=== PATIENT | female | born 1995 | race Two or more races ===

== ENCOUNTER 2018-11-10 22:42 | Emergency (ER) | payer MEDICAID ==
[~2018-11-10] VITALS: Ht 160 cm; Wt 64.0 kg
[2018-11-11] MEDS ORDERED: ONDANSETRON ODT 4 MG PO ONE (01:30)
[2018-11-11 01:37] LABS: BASOPHILS # (AUTO) 0.04 x10^3/uL (0-0.1); BASOPHILS % (AUTO) 0 % (0-1); EOSINOPHILS # (AUTO) 0.09 x10^3/uL (0-0.4); EOSINOPHILS % (AUTO) 1 % (1-7); LYMPHOCYTES # (AUTO) 3.02 x10^3/uL (1-3.4); LYMPHOCYTES % (AUTO) 21 % (22-44); MD NO; MEAN CORPUSCULAR HEMOGLOBIN 29.8 pg (27.0-34.8); MEAN CORPUSCULAR HGB CONC 33.7 g/dL (32.4-35.8); MEAN CORPUSCULAR VOLUME 88.7 fL (80-100); MONOCYTES # (AUTO) 1.08 x10^3/uL (0.2-0.8); MONOCYTES % (AUTO) 8 % (2-9); NEUTROPHILS # (AUTO) 10.05 x10^3/uL (1.8-6.8); NEUTROPHILS % (AUTO) 70 % (42-75); PLATELET COUNT 276 x10^3/uL (130-400); RED BLOOD COUNT 4.25 x10^6/uL (3.82-5.3); RED CELL DISTRIBUTION WIDTH 14.1 % (9.6-15.2)
[2018-11-11] MEDS ORDERED: ONDANSETRON ODT 4 MG ONE (01:38)
[2018-11-11 01:50] VITALS: BP 119/46
[2018-11-11 01:50] LABS: ALBUMIN 3.4 g/dL (3.4-5.0); ANION GAP 6 mmol/L (5-15); CALCIUM 8.7 mg/dL (8.5-10.1); CHLORIDE 106 mmol/L (98-107)
[2018-11-11 01:53] LABS: ALANINE AMINOTRANSFERASE 15 U/L (12-78); ALKALINE PHOSPHATASE 50 U/L (45-117); BILIRUBIN,TOTAL 0.9 mg/dL (0.2-1.0); CREATININE 0.52 mg/dL (0.55-1.02); TOTAL PROTEIN 7.1 g/dL (6.4-8.2)
[2018-11-11 01:59] LABS: CULTURE INDICATED? YES; MICROSCOPIC INDICATED
== END 2018-11-11 02:37 | disposition home or self-care (01) ==
LOC: ED 23:59
DX: O21.9 Vomiting of pregnancy, unspecified (principal); Z3A.14 14 weeks gestation of pregnancy
CPT/HCPCS: 36415; 80053; 81001; 83690; 85025; 87086; 99284; Q0162

== ENCOUNTER 2021-05-17 10:42 | Inpatient (IN) | payer MEDICAID ==
[~2021-05-17] VITALS: Ht 160 cm; Wt 86.4 kg
[2021-05-17] MEDS ORDERED: CALC200T3 PO (10:53)
[2021-05-17] MEDS ORDERED: PREN1TAB60 PO (10:53)
[2021-05-17] MEDS ORDERED: SODIUM CITRATE/CITRIC ACID 15 ML UDC ONE (11:25)
[2021-05-17] MEDS ORDERED: METOCLOPRAMIDE 5 MG/ML, 2ML ONE (11:25)
[2021-05-17] MEDS ORDERED: NEWBORN KIT ONE (11:26)
[2021-05-17] MEDS ORDERED: TERBUTALINE 1 MG/ML, 1ML SQ PRN (11:30)
[2021-05-17] MEDS ORDERED: FENTANYL PF 100 MCG/2ML IVPush PRN (11:30)
[2021-05-17] MEDS ORDERED: SODIUM CITRATE/CITRIC ACID 30 ML UDC PO ONE (11:30)
[2021-05-17] MEDS ORDERED: LACTATED RINGERS 1,000 ML IVBOLUS ONE (11:30)
[2021-05-17] MEDS ORDERED: TERBUTALINE 1 MG/ML, 1ML IVPush PRN (11:30)
[2021-05-17] MEDS ORDERED: OXYTOCIN 30U/ 0.9% NaCL 500ML 500 ML IV ONE (11:30)
[2021-05-17] MEDS ORDERED: D5%-LACTATED RINGERS 1,000 ML IV SCH (11:30)
[2021-05-17] MEDS ORDERED: ONDANSETRON 2MG/ML, 2ML IVPush PRN ×2 (11:30→14:00)
[2021-05-17] MEDS ORDERED: LACTATED RINGERS 1,000 ML IV SCH (11:30)
[2021-05-17 11:50] LABS: BASOPHILS % (AUTO) 1 % (0-1); EOSINOPHILS % (AUTO) 0 % (1-7); LYMPHOCYTES % (AUTO) 19 % (22-44); MEAN CORPUSCULAR HEMOGLOBIN 26.9 pg (27.0-34.8); MEAN CORPUSCULAR HGB CONC 32.9 g/dL (32.4-35.8); MEAN PLATELET VOLUME 9.4 fL (7.4-10.4); MONOCYTES % (AUTO) 8 % (2-9); NEUTROPHILS % (AUTO) 73 % (42-75); PLATELET COUNT 247 x10^3/uL (130-400); RED BLOOD COUNT 4.15 x10^6/uL (3.82-5.3); RED CELL DISTRIBUTION WIDTH 15.2 % (9.6-15.2)
[2021-05-17] MEDS ORDERED: morphine SULFATE/PF 0.5 MG/ML, 10ML ONE (12:03)
[2021-05-17] MEDS ORDERED: OXYTOCIN 10 UNITS/ML, 1ML ONE (12:04)
[2021-05-17] MEDS ORDERED: DEXAMETHASONE 4 MG/ML, 1ML ONE (12:04)
[2021-05-17] MEDS ORDERED: ONDANSETRON 2MG/ML, 2ML ONE (12:04)
[2021-05-17] MEDS ORDERED: SODIUM CHLORIDE FLUSH 0.9%, 20 ML ONE (12:04)
[2021-05-17] MEDS ORDERED: KETOROLAC 30 MG/1 ML ONE (12:04)
[2021-05-17] MEDS ORDERED: CEFAZOLIN 1,000 MG ONE (12:04)
[2021-05-17] MEDS ORDERED: PHENYLEPHRINE 10 MG/ML ONE (12:05)
[2021-05-17] MEDS ORDERED: MISOPROSTOL 200 MCG TABLET PR PRN (13:30)
[2021-05-17] MEDS: KETOROLAC 30 MG/1 ML IV SCH ×2 (13:30→19:30)
[2021-05-17] MEDS: OXYTOCIN 30U/ 0.9% NaCL 500ML 500 ML IV SCH ×2 (13:30→23:30)
[2021-05-17] MEDS ORDERED: ACETAMINOPHEN 325 MG TABLET PO PRN (13:30)
[2021-05-17] MEDS ORDERED: SIMETHICONE 80 MG CHEW TAB PO PRN (13:30)
[2021-05-17] MEDS ORDERED: MORPHINE SULFATE 4 MG/ML, 1ML IVPush PRN (13:30)
[2021-05-17] MEDS ORDERED: OXYcodone IR 5MG TABLET PO PRN (13:30)
[2021-05-17] MEDS ORDERED: ONDANSETRON 2MG/ML, 2ML IV PRN (13:30)
[2021-05-17] MEDS: LACTATED RINGERS 1,000 ML IV SCH ×4 (13:30→23:06)
[2021-05-17] MEDS ORDERED: OXYcodone/APAP 5/325MG TABLET PO PRN (14:00)
[2021-05-17] MEDS ORDERED: DIPHENHYDRAMINE 50 MG/ML, 1ML IV PRN (14:00)
[2021-05-17] MEDS ORDERED: morphine SULFATE 10 MG/ML, 1ML IVPush PRN (14:00)
[2021-05-17] MEDS ORDERED: EPHEDRINE 50 MG/ML, 1ML IVPush PRN (14:00)
[2021-05-17] MEDS ORDERED: NO SEDATIVES, TRANQUILIZERS OR ANTIEMETICS XX SCH (14:00)
[2021-05-17] MEDS ORDERED: NALOXONE 0.4 MG/ML, 1ML IV PRN (14:00)
[2021-05-17] MEDS ORDERED: OXYcodone 5 MG/5 ML ORAL.SOL UDC ONE (14:34)
[2021-05-17] MEDS ORDERED: OXYcodone 5 MG/5 ML ORAL.SOL UDC PO PRN (15:00)
[2021-05-17 15:30] VITALS: BP 108/62
[2021-05-17] MEDS: KETOROLAC 30 MG/1 ML IVPush SCH (19:00)
[2021-05-17 20:30] VITALS: BP 113/66
[2021-05-18 01:00] VITALS: BP 105/62
[2021-05-18] MEDS: KETOROLAC 30 MG/1 ML IVPush SCH ×3 (01:13→13:37)
[2021-05-18] MEDS: KETOROLAC 30 MG/1 ML IV SCH ×3 (01:30→20:03)
[2021-05-18 04:22] VITALS: BP 108/65
[2021-05-18] MEDS: LACTATED RINGERS 1,000 ML IV SCH ×5 (05:30→21:30)
[2021-05-18 07:45] VITALS: BP 118/75
[2021-05-18] MEDS: PRENATAL VIT/IRON/FA 1 EACH TABLET PO SCH (09:00)
[2021-05-18] MEDS: OXYTOCIN 30U/ 0.9% NaCL 500ML 500 ML IV SCH ×2 (09:30→19:30)
[2021-05-18 12:32] VITALS: BP 114/67
[2021-05-18 16:40] VITALS: BP 99/67
[2021-05-18] MEDS: OXYcodone/APAP 5/325MG TABLET PO PRN ×2 (19:01→23:21)
[2021-05-18] MEDS: DOCUSATE 100 MG CAPSULE PO PRN (19:01)
[2021-05-18 20:00] VITALS: BP 110/67
[2021-05-19] MEDS: KETOROLAC 30 MG/1 ML IV SCH ×3 (02:02→14:00)
[2021-05-19] MEDS: OXYTOCIN 30U/ 0.9% NaCL 500ML 500 ML IV SCH ×2 (05:19→15:30)
[2021-05-19] MEDS: LACTATED RINGERS 1,000 ML IV SCH ×4 (05:19→15:30)
[2021-05-19] MEDS: OXYcodone/APAP 5/325MG TABLET PO PRN ×2 (06:03→16:21)
[2021-05-19] MEDS ORDERED: OXYC-302 PO (06:51)
[2021-05-19] MEDS: DOCUSATE 100 MG CAPSULE PO PRN (07:40)
[2021-05-19 08:20] VITALS: BP 118/72
[2021-05-19] MEDS: PRENATAL VIT/IRON/FA 1 EACH TABLET PO SCH (09:00)
[2021-05-19] MEDS ORDERED: IBUPROFEN 600 MG TABLET PO PRN (13:30)
== END 2021-05-19 16:55 | disposition home or self-care (01) | DRG 788 ==
LOC: LDIP 10:42 → 2NW 15:13
PROVIDERS: ADMIT Obstetrics & Gynecology; ATTEND Obstetrics & Gynecology
PROC: 10D00Z1 Extraction of Products of Conception, Low, Open Approach (ICD-10-PCS; principal; 2021-05-17)
DX: O99.52 Diseases of the respiratory system complicating childbirth (principal); J45.909 Unspecified asthma, uncomplicated; O34.211 Maternal care for low transverse scar from previous cesarean delivery; G43.909 Migraine, unspecified, not intractable, without status migrainosus; O99.354 Diseases of the nervous system complicating childbirth; Z37.0 Single live birth; Z3A.39 39 weeks gestation of pregnancy; Z82.62 Family history of osteoporosis
CPT/HCPCS: 36415; 85014; 85018; 85025; 86592; 86850; 86900; G0378; J0690; J1100; J1885; J2274; J2405; U0005; J1200; J2370; J2590; J7120; U0003